=== PATIENT | female | born 1985 | race Caucasian/White ===

== ENCOUNTER 2022-06-29 19:48 | Inpatient (IN) | payer SELFPAY ==
[2022-06-29 20:05] VITALS: BMI 29.0
[2022-06-29] MEDS ORDERED: hydrALAZINE 20 MG/ML VIAL SLOW IVP PRN (20:50)
[2022-06-29] MEDS ORDERED: Methylergonovine 0.2 MG/ML VIAL IM PRN (20:50)
[2022-06-29] MEDS ORDERED: Promethazine HCl 25 MG/ML VIAL IM PRN (20:50)
[2022-06-29] MEDS ORDERED: Lidocaine 1% (PF) 30 ML VIAL SC PRN (20:50)
[2022-06-29] MEDS ORDERED: Ibuprofen 800 MG TAB PO PRN (20:50)
[2022-06-29] MEDS ORDERED: Ondansetron PF 4 MG/2 ML Vial IVP PRN (20:50)
[2022-06-29] MEDS ORDERED: Butorphanol Tartrate 1 MG/ML VIAL SLOW IVP PRN (20:50)
[2022-06-29] MEDS ORDERED: Misoprostol 200 MCG TAB PR PRN (20:50)
[2022-06-29] MEDS ORDERED: Carboprost 250 MCG/ML AMP IM PRN (20:50)
[2022-06-29] MEDS ORDERED: Lactated Ringer's 1,000 ML IV SCH (21:00)
[2022-06-29] MEDS ORDERED: NS w/ Oxytocin 30 units 500 ML IV SCH ×2 (21:00)
[2022-06-29] MEDS ORDERED: Penicillin G Potassium 5 MILL.UNITS VIAL ONE (21:35)
[2022-06-29] MEDS ORDERED: Penicillin G Potassium 5 MILL.UNITS in Sodium Chloride 0.9% 100 ML IVPB SCH (21:45)
[2022-06-29 21:51] LABS: Hemoglobin 13.8 g/dL (12.0-15.5); Mean Corpuscular HGB CONC 34.5 g/dL (32.0-36.0); Mean Corpuscular Hemoglobin 32.2 pg (27.0-33.0); Mean Corpuscular Volume 93.5 fl (81.6-98.3); Mean Platelet Volume 10.9 fl (7.4-10.4); Platelet Count 169 10x3/uL (150-450); RBC Distribution Width 12.6 % (11.5-14.5); Red Blood Cell (RBC) Count 4.28 10x6/uL (3.90-5.03); White Blood Cell (WBC) Count 10.6 10x3/uL (3.5-10.5)
[2022-06-29 22:46] LABS: SARS-CoV-2 NAA Rapid Test DETECTED (NotDetected)
[2022-06-29] MEDS ORDERED: Fentanyl 2 mcg/Bup 0.1% Cadd 100 ML ONE (22:52)
[2022-06-29 23:09] LABS: HBSAg Index 0.69 S/CO (0-0.99); Hep B Surf Ag Non-Reactive S/CO (NonReactive)
[2022-06-29 23:15] LABS: Syphilis Antibody Nonreactive (Nonreactive); Syphilis Antibody Index 0.06 S/CO (<1.00 Non-Reactive)
[2022-06-30] MEDS ORDERED: Penicillin G 2.5 MILL.units 2.5 MILL.UNITS in Premix Bag 1 BAG IVPB SCH (01:00)
[2022-06-30] MEDS ORDERED: Misoprostol 200 MCG TAB VAG PRN (01:26)
[2022-06-30] MEDS ORDERED: Methylergonovine 0.2 MG/ML VIAL IM PRN (01:26)
[2022-06-30] MEDS ORDERED: Ondansetron PF 4 MG/2 ML Vial IVP PRN (01:26)
[2022-06-30] MEDS ORDERED: Milk Of Magnesia 30 ML UDCUP PO PRN (01:26)
[2022-06-30] MEDS ORDERED: NS w/ Oxytocin 30 units 500 ML IV SCH (01:26)
[2022-06-30] MEDS ORDERED: Boostrix 0.5 ML (Tdap) VIAL (>/=7 yrs of age) IM ONE (01:26)
[2022-06-30] MEDS ORDERED: Lanolin Ointment 7 GM TUBE TOP PRN (01:26)
[2022-06-30] MEDS ORDERED: Bisacodyl 10 MG SUPP PR PRN (01:26)
[2022-06-30] MEDS ORDERED: hydrALAZINE 20 MG/ML VIAL SLOW IVP PRN (01:26)
[2022-06-30] MEDS ORDERED: Promethazine HCl 25 MG/ML VIAL IM PRN (01:26)
[2022-06-30] MEDS ORDERED: Benzocaine-Menthol 82.5 ML CAN TOP PRN (01:26)
[2022-06-30] MEDS: Ferrous Sulfate 325 MG TAB PO SCH ×2 (05:42→17:00)
[2022-06-30] MEDS: Ibuprofen 800 MG TAB PO SCH ×3 (09:00→23:36)
[2022-06-30] MEDS: Prenatal Vitamin 1 TAB PO SCH (10:19)
[2022-06-30] MEDS: Docusate 100 MG CAP PO SCH ×2 (10:19→23:30)
[2022-07-01] MEDS: Ferrous Sulfate 325 MG TAB PO SCH (09:16)
[2022-07-01] MEDS: Ibuprofen 800 MG TAB PO SCH (09:16)
[2022-07-01] MEDS: Docusate 100 MG CAP PO SCH (09:17)
[2022-07-01] MEDS: Prenatal Vitamin 1 TAB PO SCH (09:17)
[2022-07-01 09:21] VITALS: BP 112/62; TEMP 98.8
== END 2022-07-01 14:00 | disposition home or self-care (01) | DRG 805 ==
LOC: CSHLD/OP 19:48 → CSHLD 21:38 → CSHPP 06-30 07:00
PROVIDERS: ADMIT Student in an Organized Health Care Education/Training Program; ATTEND Student in an Organized Health Care Education/Training Program
PROC: 10E0XZZ Delivery of Products of Conception, External Approach (ICD-10-PCS; principal; 2022-06-29)
PROC: 8E0ZXY6 Isolation (ICD-10-PCS; 2022-06-29)
DX: O34.211 Maternal care for low transverse scar from previous cesarean delivery (principal); U07.1 COVID-19; Z37.0 Single live birth; O98.52 Other viral diseases complicating childbirth; Z3A.39 39 weeks gestation of pregnancy; O99.824 Streptococcus B carrier state complicating childbirth
CPT/HCPCS: 36415; 85027; 86780; 86850; 86900; 86901; 87340; 99285; J2540; U0002